=== PATIENT | female | born 1950 | race Caucasian/White ===

== ENCOUNTER 2016-08-13 10:18 | Emergency (ER) | payer MEDICARE, OTHER ==
[~2016-08-13] VITALS: Ht 152.4 cm; Wt 55.0 kg
[~2016-08-13 10:18] MED LIST: ASPI-664 PO; CIPR-193 PO; LISI10TA2 PO; SIMV20TA PO
[2016-08-13 10:24] VITALS: Ht 152.4 cm; Wt 55.0 kg
--- NOTE | 2016-08-13 12:08 | RADRPT ---
PROCEDURE: XR Chest. CLINICAL INDICATION: chest pain, cough TECHNIQUE: Single frontal view of the chest was obtained COMPARISON: 09/23/2015 FINDINGS: The heart and mediastinum are within normal limits. There is a prominent right epicardial fat pad. The lungs are clear. There is no pleural effusion or pneumothorax. RPTAT: AA IMPRESSION: No acute disease. .Fabien Alvarado MD, MD Date Time Electronically viewed and signed by .Fabien Alvarado MD, on 08/13/2016 12:08 .S/
[2016-08-13] MEDS ORDERED: BENZ100C70 PO (12:27)
[2016-08-13] MEDS ORDERED: AZIT250T94 PO (12:27)
--- NOTE | 2016-08-13 13:08 | ERD ---
ER Documentation Chief Complaint Date/Time DATE: 08/13/16 TIME: 13:05 Chief Complaint cough x 5 days HPI 66-year-old female patient with a past medical history of hypertension and hypercholesterolemia presents to the ED complaining of cough that started 5 days ago. Patient reports that she has been taking Tukol cough medication for her cough and has been slightly alleviating her symptoms. Reports that she has a right-sided earache. States that she feels congested in her chest and nose region. Denies any recent traveling. Denies any leg swelling. Denies any nausea, vomiting, diarrhea, abdominal pain, chest pain, shortness of breath, wheezing, neck pain or neck stiffness. ROS All systems reviewed and are negative except as per history of present illness. Medications Home Meds Active Scripts Benzonatate* (Tessalon Perle*) 100 Mg Capsule, 100 MG PO Q8H Y for COUGH, #20 CAP Prov:GISELLA STANLEY PA-C 08/13/16 Azithromycin* (Zithromax*) 250 Mg Tablet, 250 MG PO .ZPACK DIRECTED, #6 TAB TAKE 500 MG (2 TABS) THE FIRST DAY THEN 250 MG (1 TAB) DAYS 2-5 Prov:GISELLA STANLEY PA-C 08/13/16 Ciprofloxacin Hcl* (Ciprofloxacin Hcl*) 250 Mg Tablet, 250 MG PO BID for 3 Days , #6 TAB Prov:SANDY LIU 09/23/15 Reported Medications Lisinopril* (Lisinopril*) 10 Mg Tablet, 10 MG PO DAILY, #30 TAB 09/23/15 Aspirin* (Aspirin* EC) 81 Mg Tablet.dr, 81 MG PO DAILY, TAB 09/23/15 Simvastatin* (Zocor*) 20 Mg Tablet, 20 MG PO QHS, #30 TAB 09/23/15 Allergies Allergies: Coded Allergies: atorvastatin (Verified Allergy, Unknown, 09/23/15) PMhx/Soc History of Surgery: Yes (Hysterectomy,tondillrvyomy, hernia repair, left groin) Anesthesia Reaction: No Hx Neurological Disorder: No Hx Respiratory Disorders: No Hx Cardiac Disorders: Yes (HPN) Hx Psychiatric Problems: No Hx Miscellaneous Medical Probl: Yes (hypercholesterolemia) Hx Alcohol Use: No Hx Substance Use: No Hx Tobacco Use: No Physical Exam Vitals Vital Signs Date Time Temp Pulse Resp B/P Pulse Ox O2 Delivery O2 Flow Rate FiO2 08/13/16 10:24 98.1 90 18 133/67 99 Physical Exam Const: [id number]-wfebcmxcw, well-nourished. In no acute distress. Head: Atraumatic, normocephalic Eyes: Normal Conjunctiva without injection. No purulent discharge. PERRL. EOMI ENT: Normal external ear. Ear canal without erythema. Tympanic membrane pearly solomon without effusion or bulging. Nasal canal clear with normal turbinates. Moist oropharynx without tonsillar exudates. Non-erythematous pharynx. Uvula midline. No drooling. No trismus. Neck: Full range of motion. No meningismus. No cervical lymphadenopathy. Resp: Clear to auscultation bilaterally. No wheezing, rhonchi, rales, or crackles. No accessory muscle use. No retractions. Cardio: Regular rate and rhythm. No murmurs, rubs or gallops. Abd: Soft, non tender, non distended. Normal bowel sounds. No palpable masses. No rebound tenderness. No guarding. Skin: No petechiae or rashes Back: No midline tenderness. No CVA tenderness. Ext: No cyanosis, or edema. Neur: Awake and alert. Psych: Normal Mood and Affect Procedures/MDM This is a 66-year-old female patient with no significant past medical history presents to the ED complaining of a productive cough that started 5 days ago. Patient is afebrile nontoxic appearing. Patient has normal vital signs. A chest x-ray was ordered to further evaluate patient. PROCEDURE: XR Chest. CLINICAL INDICATION: chest pain, cough TECHNIQUE: Single frontal view of the chest was obtained COMPARISON: 09/23/2015 FINDINGS: The heart and mediastinum are within normal limits. There is a prominent right epicardial fat pad. The lungs are clear. There is no pleural effusion or pneumothorax. RPTAT: AA IMPRESSION: No acute disease. This patient presents to the ED with symptoms consistent with bronchitis. Patient is afebrile and has normal vital signs. Patient's physical exam include lungs which were clear to auscultation and a normal pulse oximetry. There is a low suspicion for pneumonia, pneumothorax, mononucleosis, pulmonary embolism, epiglottitis, otitis media, otitis externa, viral/strep pharyngitis, sinusitis, peritonsillar abscess, mastoiditis, retropharyngeal abscess, meningitis, sepsis, acute abdomen or other emergent conditions. Discharge medications: Tessalon Perles, Zithromax Patient was instructed to return to the ED for any new or worsening symptoms. They should otherwise follow up with the primary care provider within 1-2 days. The patient's questions were answered at the time of discharge. Patient understood and agreed with discharge management. Departure Diagnosis: Primary Impression: Cough Condition: Stable Patient Instructions: Bronchitis, Antiobiotic Treatment (Adult) Referrals: [facility] Usted se lilly hecho un examen mdico de control que le indica que no est en milan condicin que requiera tratamiento urgente en el Departamento de Emergencia. Un estudio ms profundo y el tratamiento de albarran condicin pueden esperar sin ningn riesgo hasta que usted sea atendida/o en el consultorio de albarran mdico o milan cl jonas. Es responsabilidad suya arreglar milan raven para el seguimiento del lleand. MANEJO DE CONDICIONES NO URGENTES EN EL FUTURO 1) Si usted tiene un mdico de atencin primaria: Usted debera llamar a albarran mdico de atencin primaria antes de venir al departamento de emergencia. Despus de las horas de consultorio, albarran doctor o albarran asociado/a est disponible por telfono. El mdico o enfermero de arnulfo en el servicio telefnico puede asesorarle por navi medio para atender el problema, o leland contrario se puede programar milan raven. 2) Si usted no tiene un mdico de atencin primaria: Llame al mdico o clnica de referencia que aparece abajo josiane las horas de consultorio para hacer mlian raven para que le vean. CLINICAS: [facility] [phone] [id number] [facility] 563 [phone] [place] [facility] [phone] [facility] 163 [phone] [place] [id number] [phone] [facility]. [phone] [address] [facility]. [facility] () Usted se lilly hecho un examen mdico de control que le indica que no est en milan condicin que requiera tratamiento urgente en el Departamento de Emergencia. Un estudio ms profundo y el tratamiento de albarran condicin pueden esperar sin ningn riesgo hasta que usted sea atendida/o en el consultorio de albarran mdico o milan cl jonas. Es responsabilidad suya arreglar milan raven para el seguimiento del leland. MANEJO DE CONDICIONES NO URGENTES EN EL FUTURO 1) Si usted tiene un mdico de atencin primaria: Usted debera llamar a albarran mdico de atencin primaria antes de venir al departamento de emergencia. Despus de las horas de consultorio, albarran doctor o albarran asociado/a est disponible por telfono. El mdico o enfermero de arnulfo en el servicio telefnico puede asesorarle por navi medio para atender el problema, o leland contrario se puede programar milan raven. 2) Si usted no tiene un mdico de atencin primaria: Llame al mdico o condado institucions de referencia que aparece abajo josiane las horas de consultorio para hacer milan raven para que le vean. SI USTED NO PUEDE PAGAR PARA FLORENCIO UN MEDICO puede ir a: [facility] [address] [place] [address] [facility] [address] [place] [address] [facility] [address] [place] [address] [facility] [address] [place] [address] Additional Instructions: Llame al doctor MAANA y leonila milan RAVEN PARA DENTRO DE 2-3 NOVAK.Dgale a la secretaria que nosotros le instruimos hacer esta raven.Avise o llame si albarran condicin se empeora antes de la raven. Regresa aqui si peor o no mejor. GISELLA STANLEY PA-C August 13, 2016 13:08
== END 2016-08-13 12:30 | disposition home or self-care (01) ==
LOC: FTE 10:18
DX: R05 Cough (principal); I10 Essential (primary) hypertension; Z79.82 Long term (current) use of aspirin
CPT/HCPCS: 71010

== ENCOUNTER 2017-01-19 12:20 | Observation (INO) | payer MEDICARE, OTHER ==
[~2017-01-19] VITALS: Ht 147.3 cm; Wt 52.8 kg
[~2017-01-19 12:20] MED LIST changes: +AZIT250T94 PO; +BENZ100C70 PO
[2017-01-19] MEDS ORDERED: SOD CHLORIDE 0.9% 500 ML IV STA (14:02)
[2017-01-19 14:20] LABS: BASOPHILS % 0.3 % (0.0-2.0); EOSINOPHILS # 0.1 10^3/ul (0.0-0.5); EOSINOPHILS % 1.7 % (0.0-7.0); HEMATOCRIT 37.7 % (37.0-47.0); HEMOGLOBIN 13.1 g/dl (12.0-16.0); LYMPHOCYTES # 2.9 10^3/ul (0.8-2.9); LYMPHOCYTES % 41.2 % (15.0-51.0); MEAN CORPUSCULAR HEMOGLOBIN 32.9 pg (29.0-33.0); MEAN CORPUSCULAR HGB CONC 34.7 g/dl (32.0-37.0); MEAN CORPUSCULAR VOLUME 94.7 fl (82.0-101.0); MEAN PLATELET VOLUME 9.6 fl (7.4-10.4); MONOCYTE # 0.7 10^3/ul (0.3-0.9); MONOCYTES % 9.4 % (0.0-11.0); NEUTROPHIL # 3.3 10^3/ul (1.6-7.5); NEUTROPHILS % 47.1 % (39.0-77.0); PLATELET COUNT 272 10^3/UL (140-415); RED BLOOD COUNT 3.98 10^6/ul (4.20-5.40); RED CELL DISTRIBUTION WIDTH 11.8 % (11.5-14.5); WHITE BLOOD COUNT 6.9 10^3/ul (4.8-10.8)
[2017-01-19 14:40] LABS: ANION GAP 19 (8-16); BLOOD UREA NITROGEN 18 mg/dl (7-20); CALCIUM 9.4 mg/dl (8.4-10.2); CARBON DIOXIDE 20 mmol/L (21-31); CHLORIDE 106 mmol/L (97-110); CREATININE 0.74 mg/dl (0.44-1.00); GLUCOSE 142 mg/dl (70-220); POTASSIUM 4.1 mmol/L (3.5-5.1); SODIUM 141 mmol/L (135-144)
[2017-01-19 14:53] LABS: TROPONIN-I < 0.012 ng/ml (0.00-0.12)
--- NOTE | 2017-01-19 15:03 | ERD ---
ER Documentation Chief Complaint Chief Complaint CHEST PAIN RADIATING BACK/NECK 4 DAYS HPI This is a 66-year-old female who presents with her family member who is interpreting. The patient is describing at least 4 days of symptoms that include chest pain and back pain. She does note upper back pain that is chronic and likely unchanged. However over the last 4-5 days she has been experiencing chest pain that is pressure and dull and radiating to her back usually worse at night. She also describes these episodes of hearing noises in her chest radiating to her neck at night associated with these symptoms. She describes it as a flatulence-like sound. It is not regular and not every night and not in a pattern consistent with a heartbeat. She describes the symptoms as moderate at this point. No fevers chills or cough, no pleuritic pain. ROS All systems reviewed and are negative except as per history of present illness. Medications Home Meds Active Scripts Benzonatate* (Tessalon Perle*) 100 Mg Capsule, 100 MG PO Q8H Y for COUGH, #20 CAP Prov:GISELLA STANLEY PA-C 08/13/16 Azithromycin* (Zithromax*) 250 Mg Tablet, 250 MG PO .ZPACK DIRECTED, #6 TAB TAKE 500 MG (2 TABS) THE FIRST DAY THEN 250 MG (1 TAB) DAYS 2-5 Prov:GISELLA STANLEY PA-C 08/13/16 Ciprofloxacin Hcl* (Ciprofloxacin Hcl*) 250 Mg Tablet, 250 MG PO BID for 3 Days , #6 TAB Prov:SANDY LIU 09/23/15 Reported Medications Lisinopril* (Lisinopril*) 10 Mg Tablet, 10 MG PO DAILY, #30 TAB 09/23/15 Aspirin* (Aspirin* EC) 81 Mg Tablet.dr, 81 MG PO DAILY, TAB 09/23/15 Simvastatin* (Zocor*) 20 Mg Tablet, 20 MG PO QHS, #30 TAB 09/23/15 Allergies Allergies: Coded Allergies: atorvastatin (Verified Allergy, Unknown, 09/23/15) PMhx/Soc History of Surgery: Yes (Hysterectomy,tondillrvyomy, hernia repair, left groin) Anesthesia Reaction: No Hx Neurological Disorder: No Hx Respiratory Disorders: No Hx Cardiac Disorders: Yes (HPN) Hx Psychiatric Problems: No Hx Miscellaneous Medical Probl: Yes (hypercholesterolemia) Hx Alcohol Use: No Hx Substance Use: No Hx Tobacco Use: No Smoking Status: Never smoker FmHx Family History: No diabetes Physical Exam Vitals Vital Signs Date Time Temp Pulse Resp B/P Pulse Ox O2 Delivery O2 Flow Rate FiO2 01/19/17 14:14 Nasal Cannula 2 01/19/17 12:28 98.0 83 18 133/64 99 Physical Exam General: Well developed, well nourished, no acute distress Head: Normocephalic, atraumatic. Eyes: Pupils equally reactive, EOM intact ENT: Moist mucous membranes Neck: Supple, no lymphadenopathy, no bruit or thrill Respiratory: Lungs clear bilaterally, no distress Cardiovascular: RRR, no murmurs, rubs, or gallops Abdominal: Soft, non-tender, non-distended, no peritoneal signs : Deferred MSK: No edema, no unilateral swelling, 5/5 strength, no pulse deficits Neurologic: Alert and oriented, moving all extremities, normal speech, no focal weakness, no cerebellar signs Skin: No rash Psych: Normal mood Result Diagram: 01/19/17 1415 01/19/17 1415 Results 24 hrs Laboratory Tests Test 01/19/17 14:15 White Blood Count 6.910^3/ul Red Blood Count 3.9810^6/ul Hemoglobin 13.1g/dl Hematocrit 37.7% Mean Corpuscular Volume 94.7fl Mean Corpuscular Hemoglobin 32.9pg Mean Corpuscular Hemoglobin Concent 34.7g/dl Red Cell Distribution Width 11.8% Platelet Count 28826^3/UL Mean Platelet Volume 9.6fl Neutrophils % 47.1% Lymphocytes % 41.2% Monocytes % 9.4% Eosinophils % 1.7% Basophils % 0.3% Nucleated Red Blood Cells % 0.0/100WBC Neutrophils # 3.310^3/ul Lymphocytes # 2.910^3/ul Monocytes # 0.710^3/ul Eosinophils # 0.110^3/ul Basophils # 0.010^3/ul Nucleated Red Blood Cells # 0.010^3/ul Sodium Level 141mmol/L Potassium Level 4.1mmol/L Chloride Level 106mmol/L Carbon Dioxide Level 20mmol/L Anion Gap 19 Blood Urea Nitrogen 18mg/dl Creatinine 0.74mg/dl Glucose Level 142mg/dl Calcium Level 9.4mg/dl Troponin I < 0.012ng/ml Current Medications Medications (Trade) Dose Ordered Sig/Beck Route PRN Reason Start Time Stop Time Status Last Admin Dose Admin Sodium Chloride (NS) 500 ml @ 500 mls/hr Q1H STAT IV 01/19/17 14:02 01/19/17 15:01 DC 01/19/17 14:18 IV Flush 10 ml 10 ml STK-MED ONCE .ROUTE 01/19/17 15:28 01/19/17 15:29 DC 01/19/17 16:16 Sodium Chloride (NS) 100 ml @ ud STK-MED ONCE .ROUTE 01/19/17 15:28 01/19/17 15:29 DC 01/19/17 16:16 Iohexol (Omnipaque 300mg/ ml) 150 ml STK-MED ONCE .ROUTE 01/19/17 15:28 01/19/17 15:29 DC 01/19/17 16:16 Aspirin (Aspirin) 324 mg ONCE ONCE PO 01/19/17 18:00 01/19/17 18:01 Ondansetron HCl (Zofran Inj) 4 mg ER BRIDGE PRN IV NAUSEA AND/OR VOMITING 01/19/17 18:00 01/20/17 17:59 Acetaminophen (Tylenol Tab) 650 mg ER BRIDGE PRN PO MILD PAIN/FEVER 01/19/17 18:00 01/20/17 17:59 Procedures/MDM EKG, MONITORS, & DIAGNOSTIC IMAGING: EKG: I reviewed and interpreted a 12-lead EKG. Rhythm: Normal sinus rhythm Ectopy: None Intervals: No abnormalities ST segments: No elevations or depressions T waves: No contiguous inversions Chest x-ray: I reviewed and interpreted a 1 view of the chest Mediastinum: No enlargement Cardiac silhouette: No cardiomegaly Airspace: Clear lung spear bilaterally without evidence of pneumothorax Bones: No evidence of fracture CTA chest Indication for advanced imaging: The patient is describing chest pain radiating to her back with a history of hypertension, rule out dissection Summary of radiologist interpretation: No evidence of dissection CTA neck Indication for advanced imaging: The patient is describing migratory chest pain radiating to the neck, rule out dissection Summary of radiologist interpretation: No evidence of dissection or aneurysm LAB INTERPRETATION: Negative troponin MEDICAL DECISION MAKING: The patient presents with myriad complaints including chest pain, back pain radiating to the neck with a sound at night. This is a bizarre description of her presentation and symptoms with unclear etiology at this point. However, the patient does have a history of hypertension. She is describing migratory pain. However, her back pain is described as somewhat chronic but she does feel this somewhat related to this chest discomfort. For these reasons I believe the dissection is on the differential and the patient will benefit from CT imaging of the chest and neck. The patient is otherwise well-appearing, lower clinical concern for cardiac etiology but cannot rule this out, would recommend inpatient hospitalization. No evidence of pulmonary embolism, pneumonia, pneumothorax. Consider reflux as well. ER COURSE: The patient continues to be resting comfortably. CT imaging negative for dissection. Aspirin provided. The patient will be admitted for further management of chest pain. Again, unclear etiology at this point. I kept the patient and/or family informed of laboratory and diagnostic imaging results throughout the emergency room course. DISPOSITION PLAN: Telemetry admission for management of chest pain to rule out acute coronary syndrome, serial enzymes, risk stratification and consideration of provocative testing CONSULTATION: Accepting care team and consultations: I discussed the current laboratory data, diagnostic imaging and emergency care provided. Admitting team: Dr. Jacinto Admitting team indication: Insurance directed Departure Diagnosis: Primary Impression: Chest pain Chest pain type: unspecified Qualified Code: R07.9 - Chest pain, unspecified type Additional Impression: Neck pain Condition: VIMAL Bolden MD Jan 19, 2017 15:03
--- NOTE | 2017-01-19 15:07 | RADRPT ---
PROCEDURE: XR Chest. CLINICAL INDICATION: 66-year-old female with chest pain. TECHNIQUE: Single frontal view of the chest was obtained. COMPARISON: None FINDINGS: The soft tissues are normal. The bony elements are normal. There is a convex density along the lowe r right heart border. The heart, cardiomediastinal silhouette and hilar structures are otherwise nor mal. The pulmonary vasculature is normal. There is a left-sided aorta. The lungs are clear. The co stophrenic angles are normal. IMPRESSION: 1. Soft tissue density suspicious for an epicardial fat pad along the lower right heart border. 2. No evidence of active cardiopulmonary disease in the chest. RPTAT:AAJJ Physician Pawan Date Time Electronically viewed and signed by Jose Carvajal Physician on 01/19/2017 15:04 ROSA/
[2017-01-19] MEDS ORDERED: IOHEXOL 300MG/ML 150 ML BTL ONE (15:28)
[2017-01-19] MEDS ORDERED: SOD CHLORIDE 0.9% 100 ML ONE (15:28)
--- NOTE | 2017-01-19 16:46 | RADRPT ---
PROCEDURE: CTA Neck. CLINICAL INDICATION: Pain, assess for dissection TECHNIQUE: Continues axial CT images were obtained through the neck with the use of 125 cc of Omni paque-300 nonionic intravenous contrast material. Coronal and sagittal as well as maximal intensity projection reformations were obtained. 3-D re-formations were performed. The images were reviewed o n a PACS workstation. The calculated radiation dose measures 526 mGy centimeters. The CTDI measures 106 mGy One or more of the following dose reduction techniques were used: Automated exposure control. Adjustment of the mA and/or kV according to patient size. Use of iterative reconstruction technique. COMPARISON: No prior studies are available for comparison. FINDINGS: The aortic arch demonstrates mild calcification. The origins of the great vessels are intact. The brachiocephalic artery appears unremarkable. The right common carotid artery appears normal, wi thout stenosis or occlusion. The right carotid bifurcation demonstrates mild to moderate calcificat ion. There is approximate 25% stenosis of the proximal right internal carotid artery. The right int ernal carotid artery flows through normally to the intracranial segment. The left common carotid artery appears normal, without stenosis or occlusion. The left carotid bifu rcation demonstrates mild to moderate calcification, without significant vessel stenosis. The left internal carotid artery flows through normally to the intracranial segment. The left vertebral artery is diminutive in size, without focal stenosis. The right vertebral artery is normally patent.. IMPRESSION: 1. Mild to moderate calcification at the right carotid bifurcation, with up to 25% stenosis of the proximal right internal carotid artery. 2. Mild to moderate calcification of the left carotid bifurcation, without significant vessel steno sis. 3. Normal patency of the vertebral arteries. Diminutive left vertebral artery, anatomic variant. 4. No evidence for dissection. RPTAT: PP .Paul Wetzel MD, MD Date Time Electronically viewed and signed by .Paul Wetzel MD, MD on 01/19/2017 16:46 .T/
--- NOTE | 2017-01-19 17:27 | RADRPT ---
PROCEDURE: CT thoracic Angiogram. CLINICAL INDICATION: Chest pain and shortness of breath. TECHNIQUE: CT thoracic aorta angiogram and a CT scan of the chest with contrast was performed. Th e patient was scanned following the uncomplicated intravenous administration of 125 cc of Omnipaque- 300 intravenous contrast. 2-D coronal reformatted images were obtained from the axial source images . In addition, 3-D post processing was performed. Total exam DLP is 526.37 mGy-cm. CTDIvol is 105 .63 mGy. One or more of the following dose reduction techniques were used: Automated exposure contr ol, adjustment of the mA and/or kV according to patient size, use of iterative reconstruction techni que. COMPARISON: Chest x-ray done earlier the same day. FINDINGS: The pulmonary arteries are well opacified and are normal with no filling defect or lack of enhanceme nt to suggest pulmonary artery embolism. The lungs are clear. There is no pulmonary airspace or interstitial disease. There is no pulmonary nodule or mass lesion. There is no pneumothorax. There is no mediastinal or hilar lymphadenopathy or mass. There is no pleural effusion. There is no pericardial effusion. There is calcification in the wall of the descending aorta consistent with atherosclerosis. The thor acic aorta is otherwise normal with no aneurysm or dissection. The heart size is normal. Images through the upper abdomen demonstrate normal visualized portions of the liver, spleen, and ad renals. The osseous structures are normal with no fracture or lytic lesion. IMPRESSION: 1. Normal CT angiogram of the thoracic aorta with no evidence of aortic dissection. 2. The pulmonary arteries are also normal with no evidence of pulmonary artery embolism. 3. Atherosclerosis. 4. Otherwise unremarkable CT scan of the chest. RPTAT: QQ .Chidi Osullivan MD, Date Time Electronically viewed and signed by .Chidi Osullivan MD, on 01/19/2017 17:26 .R/
[2017-01-19 18:00] VITALS: TEMP 98.3
[2017-01-19] MEDS ORDERED: morphine 2 MG INJ IV PRN (18:00)
[2017-01-19] MEDS ORDERED: NACL 0.9% 3 ML SYG IV SCH (18:00)
[2017-01-19] MEDS ORDERED: ACETAMINOPHEN 325 MG TAB PO PRN ×2 (18:00)
[2017-01-19] MEDS ORDERED: ASPIRIN 81 MG TAB PO ONE (18:00)
[2017-01-19] MEDS ORDERED: ONDANSETRON 4 MG TAB PO PRN (18:00)
[2017-01-19] MEDS ORDERED: ONDANSETRON 4 MG INJ IV PRN (18:00)
[2017-01-19] MEDS ORDERED: HYDROCODONE/APAP (5/325) TAB PO PRN (18:00)
[2017-01-19 18:25] LABS: CHOL/HDL RATIO 5.5 RATIO
--- NOTE | 2017-01-19 19:03 | HP ---
Date/Time of Note Date/Time of Note DATE: 01/19/17 TIME: 18:48 Assessment/Plan VTE Prophylaxis VTE Prophylaxis Intervention: SCD's Lines/Catheters IV Catheter Type (from Nrsg): Saline Lock Assessment/Plan Assessment/Plan 66 yo F with pmhx HL, HTN here with chest pain. d/dx includes ACS v other PLAN tele monitoring asa, BP control. bump up statin-->will also help with atherosclerosis pre DM: RD eval repeat TTE ordered HPI/ROS Admit Date/Time Admit Date/Time Hx of Present Illness cc Chest pain x 5 days HPI 66 yo F with pmhx HTN, HL presents with 5 days of chest discomfort. Denies fevers or chills. Also reports hearing some sort of "rattling" in her chest. No rashes or leg swelling. No recent medication changes PMH/Family/Social Social History lives in the community daughter of [employer] employee Smoking Status: Never smoker Exam/Review of Systems Vital Signs Vitals Vital Signs Date Time Temp Pulse Resp B/P Pulse Ox O2 Delivery O2 Flow Rate FiO2 01/19/17 18:00 98.3 88 20 141/77 100 Nasal Cannula 2.0 Exam Exam nad MMM EOMI no mrg lungs clear abd soft no rashes no le edema labs reviewed, TC/TGs high imaging with pericardial fat pad, atherosclerosis TTE 2015 2D ECHO results: Conclusions 1. Normal left ventricular systolic function. Normal left ventricular cavity size. Ejection fraction is visually estimated at 70 %. Tissue Doppler/Mitral Doppler indices are consistent with impaired relaxation (Stage I diastolic dysfunction). E/E`=8. 2. The left atrium is normal in size. 3. Normal appearance of the mitral valve. Trace mitral regurgitation. 4. Normal appearance of the aortic valve. Mild aortic valve regurgitation. 5. Normal appearance of the tricuspid valve. Estimated peak PA systolic pressure 25 mmHg. There is mild tricuspid regurgitation. Labs Result Diagram: 01/19/17 1415 01/19/17 1415 Medications Medications Current Medications Ondansetron HCl (Zofran Tab) 4 mg Q6H PRN PO NAUSEA AND/OR VOMITING; Start 01/19/17 at 18:00 Acetaminophen (Tylenol Tab) 650 mg Q6H PRN PO PAIN LEVEL 1-3 OR FEVER; Start 01/19/17 at 18:00 Acetaminophen/ Hydrocodone Bitart ([place] (5/325)) 1 tab Q6H PRN PO PAIN LEVEL 4 -6; Start 01/19/17 at 18:00 Morphine Sulfate (morphine) 2 mg Q4H PRN IV PAIN LEVEL 7-10; Start 01/19/17 at 18:00 Enoxaparin Sodium (Lovenox) 40 mg DAILY SC ; Start 01/20/17 at 09:00 Aspirin (Halfprin) 81 mg DAILY PO ; Start 01/20/17 at 09:00 Lisinopril (Zestril) 10 mg DAILY PO ; Start 01/20/17 at 09:00 Miscellaneous Information 20 mg QHS XX ; Start 01/19/17 at 21:00; Status UNV Miscellaneous Information (*Order Clarification Bulletin) MEDICATION REQUIRES CLARIFICATI... Q8H XX ; Start 01/19/17 at 18:30 BASSAM CAI MD Jan 19, 2017 18:59
[2017-01-19 20:34] VITALS: PULSE 83
[2017-01-19] MEDS: ZOCOR XX SCH (20:48)
[2017-01-19] MEDS ORDERED: SIMVASTATIN 40 MG XX SCH ×2 (21:00)
[2017-01-19] MEDS ORDERED: NON-FORMULARY/PATIENT OWN MED (Simvastatin* (Zocor*) 20 MG) XX SCH (21:00)
[2017-01-19 21:35] LABS: CREATINE KINASE 61 IU/L (23-200)
[2017-01-19 21:40] VITALS: BP 135/67; RESP 16
[2017-01-19 21:48] LABS: CK-MB 0.84 ng/ml (0.0-2.4)
[2017-01-19 21:51] LABS: TROPONIN-I < 0.012 ng/ml (0.00-0.12)
[2017-01-19 22:27] VITALS: Ht 147.3 cm; Wt 52.8 kg
[2017-01-20] VITALS (8 sets, daily range): BP systolic 120–142; BP diastolic 34–66; PULSE 67–75; RESP 16–18
[2017-01-20] MEDS ORDERED: IBUPROFEN 600 MG TAB PO PRN (01:00)
[2017-01-20] MEDS: ZOCOR XX SCH (02:30)
[2017-01-20 02:45] LABS: CREATINE KINASE 65 IU/L (23-200)
[2017-01-20 02:59] LABS: CK-MB 0.89 ng/ml (0.0-2.4)
[2017-01-20 03:00] LABS: TROPONIN-I < 0.012 ng/ml (0.00-0.12)
[2017-01-20 07:34] LABS: BASOPHILS % 0.4 % (0.0-2.0); EOSINOPHILS # 0.2 10^3/ul (0.0-0.5); EOSINOPHILS % 2.3 % (0.0-7.0); HEMATOCRIT 39.4 % (37.0-47.0); HEMOGLOBIN 13.2 g/dl (12.0-16.0); LYMPHOCYTES # 2.8 10^3/ul (0.8-2.9); LYMPHOCYTES % 40.5 % (15.0-51.0); MEAN CORPUSCULAR HEMOGLOBIN 31.9 pg (29.0-33.0); MEAN CORPUSCULAR HGB CONC 33.5 g/dl (32.0-37.0); MEAN CORPUSCULAR VOLUME 95.2 fl (82.0-101.0); MEAN PLATELET VOLUME 10.7 fl (7.4-10.4); MONOCYTE # 0.7 10^3/ul (0.3-0.9); MONOCYTES % 9.6 % (0.0-11.0); NEUTROPHIL # 3.2 10^3/ul (1.6-7.5); NEUTROPHILS % 46.9 % (39.0-77.0); PLATELET COUNT 227 10^3/UL (140-415); RED BLOOD COUNT 4.14 10^6/ul (4.20-5.40); RED CELL DISTRIBUTION WIDTH 11.9 % (11.5-14.5); WHITE BLOOD COUNT 6.9 10^3/ul (4.8-10.8)
[2017-01-20 07:57] LABS: ALBUMIN/GLOBULIN RATIO 1.21; BILIRUBIN,INDIRECT 0.5 mg/dl (0-1.1); BILIRUBIN,TOTAL 0.5 mg/dl (0.2-1.3); CALCIUM 9.5 mg/dl (8.4-10.2); CREATININE 0.78 mg/dl (0.44-1.00); POTASSIUM 4.3 mmol/L (3.5-5.1); TOTAL PROTEIN 7.3 g/dl (6.1-8.1)
[2017-01-20] MEDS ORDERED: LISINOPRIL 10 MG TAB PO SCH (09:00)
[2017-01-20] MEDS ORDERED: ASPIRIN (EC) 81 MG TAB PO SCH (09:00)
[2017-01-20] MEDS ORDERED: ENOXAPARIN 40 MG/0.4 ML SYG SC SCH (09:00)
[2017-01-20] MEDS ORDERED: PANT40TA3 PO (13:43)
--- NOTE | 2017-01-20 13:51 | DS ---
Date/Time of Note Date/Time of Note DATE: 01/20/17 TIME: 13:44 Discharge Summary Admission/Discharge Info Admit Date/Time Jan 19, 2017 at 17:35 Discharge Date/Time Discharge Diagnosis 1. Chest pain, likely GERD related, protonix, follow up with PCP 2. HTN, controlled 3. Dyslipidemia, Patient Condition: Stable Hospital Course 66 years old female with HTN and dyslipidemia has intermittent epigastric pain that she said she has history of gastritis presents with one day off and on retrosternal gas-like chest pain, better on bulging. Chest pain resolved today. No shortness of breath. Physical exam unremarkable. Troponin negative. ECG within normal limit. The chest pain is considered GI related. I discharge her with protonix and have her follow up with PCP. OUtpatient cardiology consultation maybe needed if chest pain recurs. Home Meds Active Scripts Pantoprazole* (Protonix*) 40 Mg Tablet., 40 MG PO DAILY for 30 Days, TAB Prov:RAMSES MATOS MD 01/20/17 Reported Medications Lisinopril* (Lisinopril*) 10 Mg Tablet, 10 MG PO DAILY, #30 TAB 09/23/15 Aspirin* (Aspirin* EC) 81 Mg Tablet., 81 MG PO DAILY, TAB 09/23/15 Simvastatin* (Zocor*) 20 Mg Tablet, 20 MG PO QHS, #30 TAB 09/23/15 Discontinued Scripts Benzonatate* (Tessalon Perle*) 100 Mg Capsule, 100 MG PO Q8H Y for COUGH, #20 CAP Prov:GISELLA STANLEY PA-C 08/13/16 Azithromycin* (Zithromax*) 250 Mg Tablet, 250 MG PO .LIZABETH DIRECTED, #6 TAB TAKE 500 MG (2 TABS) THE FIRST DAY THEN 250 MG (1 TAB) DAYS 2-5 Prov:GISELLA STANLEY-Nikkie 08/13/16 Ciprofloxacin Hcl* (Ciprofloxacin Hcl*) 250 Mg Tablet, 250 MG PO BID for 3 Days , #6 TAB Prov:SANDY LIU 09/23/15 Follow-up Plan PCP in one week Primary Care Provider [facility] Pending Labs Laboratory Tests Test 01/19/17 14:12 01/19/17 14:15 01/19/17 21:01 01/20/17 01:56 Hemoglobin A1c 6.3% (0-5.9) Triglycerides Level 382mg/dl (0-149) Cholesterol Level 220mg/dl (100-200) LDL Cholesterol, Calculated 104mg/dl HDL Cholesterol 40mg/dl (35-98) Cholesterol/HDL Ratio 5.5RATIO White Blood Count 6.910^3/ul (4.8-10.8) Red Blood Count 3.9810^6/ul (4.20-5.40) Hemoglobin 13.1g/dl (12.0-16.0) Hematocrit 37.7% (37.0-47.0) Mean Corpuscular Volume 94.7fl (82.0-101.0) Mean Corpuscular Hemoglobin 32.9pg (29.0-33.0) Mean Corpuscular Hemoglobin Concent 34.7g/dl (32.0-37.0) Red Cell Distribution Width 11.8% (11.5-14.5) Platelet Count 14865^3/UL (140-415) Mean Platelet Volume 9.6fl (7.4-10.4) Neutrophils % 47.1% (39.0-77.0) Lymphocytes % 41.2% (15.0-51.0) Monocytes % 9.4% (0.0-11.0) Eosinophils % 1.7% (0.0-7.0) Basophils % 0.3% (0.0-2.0) Nucleated Red Blood Cells % 0.0/100WBC (0.0-0.0) Neutrophils # 3.310^3/ul (1.6-7.5) Lymphocytes # 2.910^3/ul (0.8-2.9) Monocytes # 0.710^3/ul (0.3-0.9) Eosinophils # 0.110^3/ul (0.0-0.5) Basophils # 0.010^3/ul (0.0-0.1) Nucleated Red Blood Cells # 0.010^3/ul (0.0-0.0) Sodium Level 141mmol/L (135-144) Potassium Level 4.1mmol/L (3.5-5.1) Chloride Level 106mmol/L (97-110) Carbon Dioxide Level 20mmol/L (21-31) Anion Gap 19 (8-16) Blood Urea Nitrogen 18mg/dl (7-20) Creatinine 0.74mg/dl (0.44-1.00) Glucose Level 142mg/dl (70-220) Calcium Level 9.4mg/dl (8.4-10.2) Troponin I < 0.012ng/ml (0.00-0.12) < 0.012ng/ml (0.00-0.12) < 0.012ng/ml (0.00-0.12) Creatine Kinase 61IU/L (23-200) 65IU/L (23-200) Creatine Kinase Index 1.4 1.4 Creatinine Kinase MB (Mass) 0.84ng/ml (0.0-2.4) 0.89ng/ml (0.0-2.4) Test 01/20/17 06:46 01/20/17 06:47 Sodium Level 143mmol/L (135-144) Potassium Level 4.3mmol/L (3.5-5.1) Chloride Level 108mmol/L (97-110) Carbon Dioxide Level 27mmol/L (21-31) Anion Gap 12 (8-16) Blood Urea Nitrogen 17mg/dl (7-20) Creatinine 0.78mg/dl (0.44-1.00) Glucose Level 112mg/dl (70-220) Calcium Level 9.5mg/dl (8.4-10.2) Total Bilirubin 0.5mg/dl (0.2-1.3) Direct Bilirubin 0.00mg/dl (0.00-0.20) Indirect Bilirubin 0.5mg/dl (0-1.1) Aspartate Amino Transf (AST/SGOT) 24IU/L (15-46) Alanine Aminotransferase (ALT/SGPT) 32IU/L (13-69) Alkaline Phosphatase 56IU/L (42-121) Total Protein 7.3g/dl (6.1-8.1) Albumin 4.0g/dl (3.3-4.9) Globulin 3.30g/dl (1.3-3.2) Albumin/Globulin Ratio 1.21 White Blood Count 6.910^3/ul (4.8-10.8) Red Blood Count 4.1410^6/ul (4.20-5.40) Hemoglobin 13.2g/dl (12.0-16.0) Hematocrit 39.4% (37.0-47.0) Mean Corpuscular Volume 95.2fl (82.0-101.0) Mean Corpuscular Hemoglobin 31.9pg (29.0-33.0) Mean Corpuscular Hemoglobin Concent 33.5g/dl (32.0-37.0) Red Cell Distribution Width 11.9% (11.5-14.5) Platelet Count 32832^3/UL (140-415) Mean Platelet Volume 10.7fl (7.4-10.4) Neutrophils % 46.9% (39.0-77.0) Lymphocytes % 40.5% (15.0-51.0) Monocytes % 9.6% (0.0-11.0) Eosinophils % 2.3% (0.0-7.0) Basophils % 0.4% (0.0-2.0) Nucleated Red Blood Cells % 0.0/100WBC (0.0-0.0) Neutrophils # 3.210^3/ul (1.6-7.5) Lymphocytes # 2.810^3/ul (0.8-2.9) Monocytes # 0.710^3/ul (0.3-0.9) Eosinophils # 0.210^3/ul (0.0-0.5) Basophils # 0.010^3/ul (0.0-0.1) Nucleated Red Blood Cells # 0.010^3/ul (0.0-0.0) ARMSES MATOS MD Jan 20, 2017 13:51
[2017-01-21] MEDS ORDERED: INFLUENZA VIRUS VACCINE 0.5 ML (DISPENSING) IM* ONE (09:00)
--- NOTE | 2017-01-23 21:20 | RADRPT ---
Echocardiogram Report Patient Name: DEONTE YATES Gender: Female Date: 1950 Study Date: 20-Jan-2017 [place] Worker: [facility] Location: 5551 Ref. Physician: BASSAM CAI Quality: Adequate Procedures: Transthoracic echocardiogram with complete 2D, M-Mode, and doppler examination. Indications: Chest Pain. 2D/M Mode Doppler Measurement Value Normal Ranges Measurement Value Normal Ranges LVIDd 2D 4.1 3.5 - 5.6 cm AV Peak Osiel 1.9 m/sec LVIDs 2D 2.6 2.1 - 4.1 cm AV Peak PG 15.0 mmHg FS 2D 36.9 % AI Peak PG 64.0 mmHg LVPWd 2D 1.0 0.6 - 1.1 cm AI Peak Osiel 4.0 m/sec IVSd 2D 0.9 0.6 - 1.1 cm AI PHT 493.0 msec IVS/LVPW 2D 0.9 LVOT Peak Osiel 1.1 m/sec AoR Diam 2D 2.3 2.0 - 3.7 cm LVOT Peak PG 5.0 mmHg LA/Ao 2D 1 0 - 1 MV E Peak Osiel 1.1 m/sec EDV 2D 69.9 cm3 MV A Peak Osiel 1.0 m/sec ESV 2D 17.6 cm3 MV E/A 1.1 LA Dimen 2D 3.0 2.3 - 4.0 cm MV Decel Time 165 msec MV E/A 1.1 TR Peak Osiel 3.0 m/sec TR Peak PG 37.0 mmHg RVSP 40.0 mmHg Findings Left Ventricle: Normal left ventricular systolic function. Normal left ventricular cavity size. Normal left ventricular wall thickness. Ejection fraction is visually estimated at 6065 %. Tissue Doppler/Mitral Doppler indices are consistent with impaired relaxation (Stage I diastolic dysfunction). Right Ventricle: Normal right ventricular size. Normal right ventricular systolic function. Left Atrium: The left atrium is normal in size. Right Atrium: The right atrium is normal in size. Mitral Valve: Mild mitral leaflet calcification. Mild mitral annular calcification. Mild mitral valve regurgitation. Aortic Valve: No significant aortic stenosis. Aortic cusps appear mildly calcified. Mild aortic valve regurgitation. Tricuspid Valve: Normal appearance of the tricuspid valve. Estimated peak PA systolic pressure 40 mmHg. There is mild tricuspid regurgitation. Pulmonic Valve: Pulmonic valve not well visualized. There is trace pulmonic regurgitation. Pericardium: Trivial pericardial effusion. Aorta: Normal aortic root. IVC: Normal size and normal respiratory collapse consistent with normal right atrial pressure. Conclusions 1.Normal left ventricular systolic function. Normal left ventricular cavity size. Normal left ventricular wall thickness. Ejection fraction is visually estimated at 60-65 %. Tissue Doppler/Mitral Doppler indices are consistent with impaired relaxation (Stage I diastolic dysfunction). 2.Mild mitral leaflet calcification. Mild mitral annular calcification. Mild mitral valve regurgitation. 3.Normal appearance of the tricuspid valve. Estimated peak PA systolic pressure 40 mmHg. There is mild tricuspid regurgitation. 4.No significant aortic stenosis. Aortic cusps appear mildly calcified. Mild aortic valve regurgitation. Electronically Signed By: José Antonio Pepe 23-Jan-2017 21:18:58 -0800 Patient Name: DEONTE YATES Study Date: 20-Jan-2017 [id number]
== END 2017-01-20 15:50 | disposition home or self-care (01) ==
LOC: E/R 12:20 → MS4 17:35
PROVIDERS: ADMIT Internal Medicine; ATTEND Internal Medicine
DX: R07.89 Other chest pain (principal); I10 Essential (primary) hypertension; E78.5 Hyperlipidemia, unspecified; I08.1 Rheumatic disorders of both mitral and tricuspid valves; Z79.82 Long term (current) use of aspirin
CPT/HCPCS: 36415; 70498; 71010; 71275; 80048; 80053; 80061; 82550; 82553; 83036; 84484; 85025; 93005; 93306; 99285; G0378; J1650; J7040; Q9967

== ENCOUNTER 2017-08-19 11:14 | Emergency (ER) | END 2017-08-19 13:05 | disposition home or self-care (01) ==